=== PATIENT | male | born 1980 | race African-American/Black ===

== ENCOUNTER 2020-04-29 05:00 | Emergency (ER) | payer OTHER ==
[~2020-04-29] VITALS: Ht 175.3 cm; Wt 90.7 kg
[2020-04-29] MEDS ORDERED: Ketorolac 60mg Inj IM ONE (05:15)
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
--- NOTE | 2020-04-29 05:16 | NUR ---
ED Nurse Note: ERMD at bedside
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
--- NOTE | 2020-04-29 05:30 | NUR ---
ED Nurse Note: Xray done at bedside
[2020-04-29 05:43] VITALS: BP 120/98
--- NOTE | 2020-04-29 06:00 | Diagnostic Imaging Report ---
EXAM: XR Left Foot Complete, 3 or More Views CLINICAL HISTORY: PAIN TECHNIQUE: Frontal, lateral and oblique views of the left foot. COMPARISON: No relevant prior studies available. FINDINGS: Bones/joints: Mild dorsal spurring of the talonavicular joint. No acute fracture. No dislocation. Soft tissues: Unremarkable. No radiopaque foreign body. IMPRESSION: No fracture.
--- NOTE | 2020-04-29 06:02 | Diagnostic Imaging Report ---
EXAM: XR Right Hand Complete, 3 or More Views CLINICAL HISTORY: PAIN TECHNIQUE: Frontal, lateral and oblique views of the right hand. COMPARISON: No relevant prior studies available. FINDINGS: Bones/joints: Unremarkable. No acute fracture. No dislocation. Soft tissues: Unremarkable. No radiopaque foreign body. IMPRESSION: Normal right hand x-rays.
--- NOTE | 2020-04-29 06:12 | Diagnostic Imaging Report ---
EXAM: CT Head Without Intravenous Contrast CLINICAL HISTORY: PAIN TECHNIQUE: Axial computed tomography images of the head/brain without intravenous contrast. CTDI is 53.4 mGy and DLP is 1152.4 mGy-cm. One or more of the following dose reduction techniques were used: automated exposure control, adjustment of the mA and/or kV according to patient size, use of iterative reconstruction technique. COMPARISON: No relevant prior studies available. FINDINGS: No acute intracranial hemorrhage. No midline shift or mass effect. The territorial burch-white matter differentiation is maintained throughout. The ventricles and sulci are commensurate with age. The visualized orbits appear grossly unremarkable. The calvarium is intact. Small mucous retention cyst in the macular sinuses. The remaining visualized paranasal sinuses and mastoid air cells are grossly clear. IMPRESSION: No acute intracranial hemorrhage, midline shift, or mass effect.
[2020-04-29] MEDS ORDERED: TYLENOL325 MG ORAL (06:23)
--- NOTE | 2020-04-29 06:45 | NUR ---
ED Nurse Note: CT scan done
--- NOTE | 2020-04-29 07:03 | Diagnostic Imaging Report ---
EXAM: CT Cervical Spine Without Intravenous Contrast CLINICAL HISTORY: PAIN TECHNIQUE: Axial computed tomography images of the cervical spine without intravenous contrast. CTDI is 20.20 mGy and DLP is 647.80 mGy-cm. One or more of the following dose reduction techniques were used: automated exposure control, adjustment of the mA and/or kV according to patient size, use of iterative reconstruction technique. COMPARISON: No relevant prior studies available. FINDINGS: The vertebral body heights are maintained. There is no spondylolisthesis. Mildly exaggerated cervical lordosis. The craniocervical junction is intact. The atlanto-dens interval is maintained. The dens is intact. Congenital narrowing of the bilateral foramina. There is severe right- sided foraminal stenosis bilaterally at C5-6 secondary to posterior spondylitic ridging. Evaluation somewhat limited due to motion artifact. Consider MRI cervical spine correlation. The facet joint alignment is anatomic. There is no prevertebral soft tissue swelling. The unenhanced neck soft tissues are grossly unremarkable. The visualized lung apices are grossly clear. Mucous retention cysts in the maxillary sinuses. IMPRESSION: No acute fracture or subluxation of the cervical spine. Congenital narrowing of the bilateral foramina. Associated, severe right- sided foraminal stenosis bilaterally at C5-6 secondary to posterior spondylitic ridging. Evaluation somewhat limited due to motion artifact. Consider MRI cervical spine correlation.
--- NOTE | 2020-04-29 07:12 | NUR ---
ED Nurse Note: Report given to JEROME Bailey RN
[2020-04-29 08:58] VITALS: BP 118/76
--- NOTE | 2020-04-29 08:58 | NUR ---
ED Nurse Note: Patient wants to go home and signed AMA form. ERMD was notified and pt aware of potential complications of getting discharged early. ID band/IV access removed. Pt is AAO x4 and ambulates with steady gait.
== END 2020-04-29 08:58 | disposition home or self-care (01) ==
LOC: EMR 05:15
DX: S00.03XA Contusion of scalp, initial encounter (principal); M79.641 Pain in right hand; M79.672 Pain in left foot; M48.02 Spinal stenosis, cervical region; J34.1 Cyst and mucocele of nose and nasal sinus; Y04.2XXA Assault by strike against or bumped into by another person, initial encounter; Y92.9 Unspecified place or not applicable
CPT/HCPCS: 70450; 72125; 73130; 73620; 96372; Z7502; 99284